=== PATIENT | female | born 1955 | race Caucasian/White ===

== ENCOUNTER 2024-09-06 03:16 | Emergency (ER) | payer MEDICARE, OTHER, SELFPAY ==
[2024-09-06 03:17] VITALS: BP 164/94
[2024-09-06 03:33] VITALS: BMI 25.4
--- NOTE | 2024-09-06 03:41 | ED.GENMED ---
History of Present Illness
General
Chief Complaint: Abdominal Pain
Source: patient
Exam Limitations: none
Time Seen by Provider: 09/06/24 03:39
Nursing documentation reviewed up to this point in time: agreed with
History of Present Illness
History of Present Illness:
This is a 69-year-old female with past medical history of uterine cancer , hypothyroidism, who presents emergency department with concerns of sharp left upper back pain awakening her from sleep. Patient reports that she also has a lot of nausea
associated with this and did have 1 episode of vomiting. Patient reports that en route to the emergency department, her pain is started to improve but is still there and it comes in waves. Patient denies any fevers or chills. Patient reports that
past week she has been feeling well, she denies any sick contacts. She denies any diarrhea or constipation. She denies any chest pain. She has no intermittent shortness of breath. She denies any syncopal episodes. She denies any history of
prior. She denies any dysuria or hematuria. She denies any epigastric pain or abdominal pain. She denies any history of cardiac disease.
Past History
Past History
ED Past Medical History: None
ED Past Surgical History: Gynecological (Hysterectomy)
Social History
Tobacco: Non-smoker
Personal:
Review of Systems
Review of Systems
All Other Systems: ROS reviewed and negative except as documented in HPI and ROS
Phy Exam
Physical Exam
Physical Exam:
General: Patient is well appearing and in no acute distress; non-toxic
Skin: Warm and dry, no rashes or lesions
Head: Normocephalic, atraumatic
Eyes: Sclera non-icteric. EOMs intact.
Cardiac: Mild tachycardia noted otherwise regular rhythm, no murmur
Peripheral Vascular: No lower extremity swelling or edema
Pulm: Normal respiratory effort, no wheezes, rales, rhonchi
Abdomen: No abdominal tenderness to palpation, mild left flank tenderness
Musculoskeletal: No midline spinal tenderness to palpation
Neuro: CN II-XII intact, no focal neurologic deficits.
Psychiatric: Appropriate mood and affect.
Course
Orders/Labs/Results
Orders:
Orders
09/06/24 03:50
Complete Blood Count/With Diff Urgent
Comprehensive Metabolic Panel Urgent
Lipase Urgent
Comment: ADD ON
09/06/24 03:53
Electrocardiogram (*1) Urgent
Reason for Study: Shortness of Breath
EKG- Treatment ONCE
09/06/24 03:59
Add On- LAB Urgent
Tests Added?: lipase
Ketorolac [Toradol] 15 mg IV NOW STA
09/06/24 04:00
EKG- Treatment ONCE
09/06/24 04:01
CT Abd/pelvis W Iv Cont Urgent
Comment:
Reason For Exam: left flank pain
09/06/24 04:03
Urinalysis Reflex To Culture Urgent
09/06/24 04:05
0.9% Sodium Chloride 500 ml [Nss] 500 ml IV BOLUS
09/06/24 05:24
CT Chest PE Study Urgent
Comment:
Reason For Exam: left back pain shortness of breath
09/06/24 05:34
Troponin I Urgent
09/06/24 06:37
Lidocaine [Lidocaine 4% Patch] 1 patch TOPICAL DAILY ONE
Apply Lidocaine patch(s) to:: left upper back
Abnormal Lab Results
09/06/24
03:50
Monocytes % 9.4 H %
(1.7-9.3)
Chloride 110 H mmol/L
(98-107)
Creatinine 0.5 L mg/dL
(0.6-1.0)
AST 129 H U/L
(14-36)
ALT 72 H U/L
(0-35)
09/06/24 03:50
09/06/24 03:50
Vital Signs
Initial and Last Documented VS:
Initial Vital Signs
Temp Pulse Resp BP Pulse Ox
98 F 116 20 164/94 96
09/06/24 03:17 09/06/24 03:17 09/06/24 03:17 09/06/24 03:17 09/06/24 03:17
Last Documented Vital Signs
Temp Pulse Resp BP Pulse Ox
98 F 116 20 113/68 96
09/06/24 03:17 09/06/24 03:17 09/06/24 03:17 09/06/24 06:00 09/06/24 06:45
MDM/Problems Addressed
Differential Diagnosis Includes:
Musculoskeletal sprain/strain, nephrolithiasis, PE, UTI, ACS
MDM/Problems Addressed:
69-year-old female past medical history of uterine cancer, hypothyroidism presents emergency department today with concerns of sharp left back pain waking her up from sleep. This is associate with nausea. On my initial evaluation, patient's
well-appearing in no acute distress she has no abdominal tenderness her lungs are clear, questionable paraspinal tenderness on the left side, questionable CVA tenderness. Did initially get a CAT scan with IV contrast suspicious for intra-abdominal
pathology versus stone, CT scan negative for kidney stone no evidence of other acute pathology. EKG shows normal sinus rhythm with no concerning ischemic changes. LFTs are elevated however patient has no epigastric pain, no right side pain, and no
white BC count, no indication for ultrasound of the gallbladder at this time. Because of lack of clear etiology of patient's symptoms, I did talk to my attending who personally evaluated patient and decision was made to get a troponin and PE study
for further evaluation of patient's symptoms. CT scans negative for pulmonary embolism. Troponin is normal. Although there is no clear inciting injury, suspect musculoskeletal etiology considering patient's symptoms are very positional and did
relieve with Toradol. Patient stable for discharge. Discussed repeating CMP blood work in 2 weeks considering elevation of AST and ALT.
*Critical Care Note
Total Time (30-74mins, 75-104mins- exclusive of procedures): Not Applicable
ED Attending Note
-
Portions of this chart may have been created with voice recognition software.� Occasional wrong word or��sound alike� substitutions may have occurred due to the inherent limitations of voice recognition software.
Discharge Plan
Departure
Patient Disposition: Home (Routine Discharge)
Date of Disposition: 09/06/24
Time of Disposition: 06:40
Patient with high blood pressure during this ER visit?: Yes
Condition: Good
Discharge Problem:
Acute left-sided back pain
Instructions: Back Pain, BLOOD PRESSURE
Prescriptions:
No Action
levothyroxine [Synthroid] 50 MCG tablet
1 tab PO DAILY
Referrals:
UNKNOWN - PT DOES,NOT KNOW [Family Provider] -
Activity Restrictions/Additional Instructions:
Remove lidocaine patch after 12 hours.
Please follow-up with your primary care provider to have CMP blood work repeated in 2 weeks.
PLEASE RETURN TO THE EMERGENCY DEPARTMENT SHOULD YOU DEVELOP ANY ACUTE WORSENING OR SYMPTOMS, CHEST PAIN, SHORTNESS OF BREATH, DIZZINESS, LIGHTHEADEDNESS, FAINTING SPELLS, OR ANY OTHER SIGNS OR SYMPTOMS WORRISOME TO YOU.
Interventions
Interventions:
*Risk Screen - Suicide Last Done: 09/06/24 03:17
*General Assessment Last Done: 09/06/24 03:33
*Neglect/Abuse Screening Last Done: 09/06/24 03:17
*ED- Fall Risk Assessment Last Done: 09/06/24 03:33
*ED COVID-19 Vaccine History Last Done: 09/06/24 03:33
BQ-Viwqbq-Sjgatotahr Assessment Last Done: 09/06/24 03:33
Discharge Date and Time
Print Language: PORTUGUESE
[2024-09-06 03:59] LABS: % Basophils 0.6 % (0-2); % Eosinophils 2.9 % (0-6); % Immature Granulocytes 0.5 % (0-0.5); % Lymphocytes 40.8 % (20.5-51.1); % Monocytes 9.4 % (1.7-9.3); % Neutrophils 45.8 % (42.2-75.2); Absolute Eosinophils 0.2 10^3/uL (0-0.7); Absolute Lymphocytes 2.7 10^3/uL (1.2-3.4); Absolute Monocytes 0.6 10^3/uL (0.1-0.6); Hematocrit 40.8 % (37.0-47.0); Hemoglobin 13.6 g/dL (12.0-16.0); Mean Corp Hgb Conc. 33.3 g/dL (33.0-37.0); Mean Corpuscular Hgb 29.7 pg (27.0-31.0); Mean Corpuscular Volume 89.1 fL (81.0-99.0); Mean Platelet Volume 9.4 fL (7.4-10.4); Nucleated Red Blood Cells % 0 %; Platelet Count 252 10^3/uL (130-400); Red Blood Cell Count 4.58 10^6/uL (4.20-5.40); Red Cell Dist. Width 13.8 % (11.5-14.5); White Blood Cell Count 6.5 10^3/uL (4.8-10.8)
[2024-09-06 04:00] VITALS: BP 124/74
[2024-09-06] MEDS: TORADOL 15 MG IV (04:12)
[2024-09-06] MEDS: NSS 500 IV (04:15)
[2024-09-06 04:22] LABS: ALT (SGPT) 72 U/L (0-35); AST (SGOT) 129 U/L (14-36); Albumin 4.3 g/dl (3.5-5.0); Alkaline Phosphatase 70 U/L (38-126); Blood Urea Nitrogen 16 mg/dl (7-17); Calcium 9.2 mg/dl (8.4-10.2); Carbon Dioxide 25 mmol/L (22-30); Chloride 110 mmol/L (98-107); Estimated Creatinine Clearance 74 ml/min; Glucose 99 mg/dl (70-99); Lipase 254 U/L (23-300); Potassium 4.1 mmol/L (3.5-5.1); Sodium 143 mmol/L (135-145); Total Bilirubin 0.5 mg/dl (0.2-1.3); Total Protein 7.4 g/dl (6.3-8.2); eGFR > 60.00
[2024-09-06 05:00] VITALS: BP 113/74
[2024-09-06 06:00] VITALS: BP 113/68
[2024-09-06 06:17] LABS: Troponin I 0.014 ng/ml
[2024-09-06] MEDS: LIDOCAINE 4% PATCH 1 PATCH TOPICAL (06:46)
== END 2024-09-06 07:15 | disposition home or self-care (01) ==
LOC: EMR 03:16
PROVIDERS: Physician Assistant; EMERGENCY PHYSICIAN Student in an Organized Health Care Education/Training Program
DX: M54.9 Dorsalgia, unspecified (principal); R03.0 Elevated blood-pressure reading, without diagnosis of hypertension; E03.9 Hypothyroidism, unspecified; Z85.42 Personal history of malignant neoplasm of other parts of uterus
CPT/HCPCS: 99285; 96374; 96361; 71275; 74177; 80053; 83690; 84484; 85025; 93005; Q9967